=== PATIENT | male | born 1970 | race Two or more races ===

== ENCOUNTER 2023-11-23 08:33 | Outpatient (CLI) | payer OTHER | END 2023-11-23 08:38 | disposition home or self-care (01) | LOC: NUCLEAR 08:33 | DX: I21.11 ST elevation (STEMI) myocardial infarction involving right coronary artery (principal); R06.00 Dyspnea, unspecified ==

== ENCOUNTER → 2024-08-22 10:45 | Outpatient (CLI) | payer OTHER | END | disposition home or self-care (01) | LOC: NUCLEAR 10:00 | DX: I21.11 ST elevation (STEMI) myocardial infarction involving right coronary artery (principal); R06.00 Dyspnea, unspecified ==

== ENCOUNTER 2024-12-12 07:24 | Outpatient (CLI) | payer OTHER | END 2024-12-12 07:27 | disposition home or self-care (01) | LOC: NUCLEAR 07:24 | DX: I21.11 ST elevation (STEMI) myocardial infarction involving right coronary artery (principal) ==